=== PATIENT | female | born 1965 | race American Indian/Alaskan Native ===

== ENCOUNTER 2017-01-26 12:29 | Emergency (ER) | payer BC ==
[2017-01-26 12:42] VITALS: TEMP 98
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
--- NOTE | 2017-01-26 13:54 | CT ---
PROCEDURE: CT HEAD WITHOUT CONTRAST. HISTORY: head injury r/o ich COMPARISON: None available. TECHNIQUE: Axial computed tomography images were obtained through the head/brain without intravenous contrast. Radiation dose: Total exam DLP = 774.23 mGy-cm. This CT exam was performed using one or more of the following dose reduction techniques: Automated exposure control, adjustment of the mA and/or kV according to patient size, and/or use of iterative reconstruction technique. FINDINGS: HEMORRHAGE: No intracranial hemorrhage. BRAIN: Multiple dural calcifications, most prominently along the interhemispheric fissure at the vertex. Additional dural calcification seen along the left frontotemporal convexity may represent a small calcified meningioma or benign dural calcification. No associated soft tissue mass is evident. No atrophy or chronic microvascular ischemic changes. VENTRICLES: Unremarkable. No hydrocephalus. CALVARIUM: Unremarkable. PARANASAL SINUSES: Unremarkable as visualized. No significant inflammatory changes. MASTOID AIR CELLS: Unremarkable as visualized. No inflammatory changes. OTHER FINDINGS: None. IMPRESSION: No evidence of intracranial hemorrhage. Dural calcifications as noted above, most likely benign calcification although the left frontotemporal convexity calcification could conceivably represent a small calcified meningioma.
[2017-01-26 14:15] VITALS: BP 120/80; PULSE 65; RESP 17; O2SAT 99
== END 2017-01-26 14:19 | disposition home or self-care (01) ==
LOC: ED 12:29
DX: S09.90XA Unspecified injury of head, initial encounter (principal); V49.9XXA Car occupant (driver) (passenger) injured in unspecified traffic accident, initial encounter